=== PATIENT | female | born 1985 | race Caucasian/White ===

== ENCOUNTER 2016-09-07 19:29 | Emergency (ER) | payer SELFPAY ==
[~2016-09-07] VITALS: Ht 160 cm; Wt 61.2 kg
[2016-09-07 20:55] LABS: BILIRUBIN,URINE NEGATIVE (NEG); GLUCOSE,URINE NEGATIVE (NEG); NITRITE,URINE NEGATIVE (NEG); PH,URINE 6.5; PROTEIN,URINE 30 mg/dL (NEG-TRACE)
[2016-09-07] MEDS ORDERED: ACETAMINOPHEN 500 MG TABLET PO ONE (21:00)
[2016-09-07 21:03] LABS: BACTERIA,URINE MANY /HPF (0-FEW); SQUAMOUS EPITHELIAL CELL,UR MOD /LPF
--- NOTE | 2016-09-07 23:16 | ED.ADGEN ---
Past Medical History Past Medical History: UTI Past Surgical History: No Surgical History Alcohol Use: Occasionally Drug Use: None Adult General Chief Complaint Chief Complaint: MULTIPLE COMPLAINTS HPI HPI Patient is a 31 year old who presents with cough, dizziness, body aches and intermittent fever for the past 3 days. Patient reports fever about 103 2 days ago. Denies fever today. Denies productive cough, sore throat, shortness of breath or wheezing. No history of asthma. Last menstrual period one month ago. Review of Systems Review of Systems ROS as per HPI Current Medications Current Medications Current Medications Medications (Trade) Dose Ordered Sig/Mary Beth Start Time Stop Time Status Last Admin Dose Admin Acetaminophen (Tylenol) 1,000 mg 1X ONCE 09/07/16 21:00 09/07/16 21:01 DC 09/07/16 21:16 1,000 MG Trimethoprim/ Sulfamethoxazole (Bactrim Ds) 1 tab 1X ONCE 09/07/16 23:30 09/07/16 23:31 Allergies Allergies Allergies Coded Allergies Type Severity Reaction Last Updated Verified No Known Drug Allergies 12/26/15 No Physical Exam Physical Exam Constitutional: Well developed, well nourished, no acute distress, non-toxic appearance. HENT: Normocephalic, atraumatic, bilateral external ears normal, oropharynx moist, no oral exudates, nose normal. Eyes: PERRLA, EOMI, conjunctiva normal. Neck: Normal range of motion, no tenderness, supple. Cardiovascular:Heart rate regular rhythm, no murmur. Lungs & Thorax: Respirations nonlabored, lung sounds clear. Abdomen: Bowel sounds normal, soft, no tenderness, no masses, no pulsatile masses. Skin: Warm, dry, no erythema, no rash. Back: No tenderness, R CVA tenderness. Extremities: No tenderness, no cyanosis, no clubbing, ROM intact, no edema. Neurologic: Alert and oriented X 3, normal motor function, normal sensory function, no focal deficits noted. Psychologic: Affect normal, judgement normal, mood normal. Current Patient Data Vital Signs Vital Signs Date Time Temp Pulse Resp B/P (MAP) Pulse Ox O2 Delivery O2 Flow Rate FiO2 09/07/16 22:51 66 99/66 (77) 96 Room Air 09/07/16 19:38 98.6 18 98.6 Lab Values Laboratory Tests Test 09/07/16 19:20 09/07/16 19:50 POC Urine HCG, Qualitative Hcg negative (Negative) Urine Collection Type Unknown Urine Color Yellow Urine Clarity Cloudy Urine pH 6.5 Urine Specific [place] 1.020 Urine Protein 30 mg/dL (NEG-TRACE) Urine Glucose (UA) Negative mg/dL (NEG) Urine Ketones (Stick) Negative mg/dL (NEG) Urine Blood Trace (NEG) Urine Nitrite Negative (NEG) Urine Bilirubin Negative (NEG) Urine Urobilinogen Dipstick 4.0 mg/dL (0.2 mg/dL) Urine Leukocyte Esterase Small (NEG) Urine RBC 1-2 /HPF (0-2) Urine WBC 5-10 /HPF (0-4) Urine Squamous Epithelial Cells Mod /LPF Urine Bacteria Many /HPF (0-FEW) Urine Mucus Mod /LPF EKG EKG [] Radiology/Procedures Radiology/Procedures [ Chest x-ray: No acute cardiopulmonary disease] Impressions: Nonspecific symptoms with cough, right flank pain concerning for UTI Course & Med Decision Making Course & Med Decision Making Pertinent Labs and Imaging studies reviewed. (See chart for details) [First dose of antibiotics given in the emergency department.] Dragon Disclaimer Dragon Disclaimer This electronic medical record was generated, in whole or in part, using a voice recognition dictation system. ASHLEY HERNANDEZ DO September 07, 2016 23:16
[2016-09-07 23:30] VITALS: BP 106/67
[2016-09-07] MEDS ORDERED: SMZ/TMP 800/160MG TABLET. PO ONE (23:30)
--- NOTE | 2016-09-08 07:02 | EKG ---
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
--- NOTE | 2016-09-08 07:19 | RAD ---
Exam performed: 2 views of the chest. Indication: COUGH Date of Service:09/07/2016 11:42 PM . Comparison : None available Findings: PA and lateral radiographs of the chest reveal a normal cardiomediastinal contour. The lungs are clear. No pleural fluid is seen. The visualized osseous structures are unremarkable. Impression: Radiographically normal chest.
== END 2016-09-07 23:34 | disposition home or self-care (01) ==
LOC: ER 19:29
DX: R05 Cough (principal); R42 Dizziness and giddiness; M79.1 Myalgia; R50.9 Fever, unspecified; Z87.440 Personal history of urinary (tract) infections
CPT/HCPCS: 71020; 81001; 81025; 87086; 93005; 99285-25